=== PATIENT | male | born 1980 | race Caucasian/White ===

== ENCOUNTER 2021-12-24 19:41 | Emergency (ER) | payer BC, OTHER ==
[~2021-12-24] VITALS: Ht 182.9 cm; Wt 108.9 kg
--- NOTE | 2021-12-24 19:49 | NUR ---
PT AMBULATED TO ER C/O SUTURE REMOVAL ON RT FA, SUTURED 10 DAYS AGO AT [facility]. NO SOB OR LABORED BREATHING, AFEBRILE. AT BEDSIDE.
--- NOTE | 2021-12-24 19:55 | NUR ---
DR. BELTRAN AT BEDSIDE, MSE IN PROGRESS.
[2021-12-24] MEDS ORDERED: NEOMY/BACITRA/POLYMYXIN B OINT UD PACKET TP ONE ×2 (20:00→20:25)
--- NOTE | 2021-12-24 20:21 | NUR ---
Patient discharged to home in stable condition. Written and verbal after care instructions given. Patient verbalizes understanding of instructions. Stressed follow up or return to ER for worsening s/s. Steady gait. Denies any pain/discomfort upon discharge.
[2021-12-24 20:22] VITALS: BP 120/72
== END 2021-12-24 20:32 | disposition home or self-care (01) ==
LOC: ER 19:41
DX: S51.811D Laceration without foreign body of right forearm, subsequent encounter (principal); X58.XXXD Exposure to other specified factors, subsequent encounter
CPT/HCPCS: A4663